=== PATIENT | female | born 1940 | race Asian ===

== ENCOUNTER 2021-12-16 03:48 | Inpatient (IN) | payer MEDICARE, OTHER ==
[~2021-12-16] VITALS: Ht 160 cm; Wt 63.6 kg
[2021-12-16] MEDS ORDERED: SODIUM CHLORIDE 0.9% 500 ML IV ONE (04:15)
[2021-12-16] MEDS ORDERED: ONDANSETRON HCL 4 MG/2 ML VIAL IVP ONE (04:15)
[2021-12-16 04:21] LABS: BASOPHILS % (AUTO) 0.2 % (0.0-2.0); EOSINOPHILS % (AUTO) 0.3 % (1.0-6.0); HEMATOCRIT 37.8 % (36-46); HEMOGLOBIN 12.9 g/dL (12.0-16.0); LYMPHOCYTES # (AUTO) 1.6 K/uL (1.0-4.8); LYMPHOCYTES % (AUTO) 25.4 % (22.0-44.0); MEAN CORPUSCULAR HEMOGLOBIN 30.9 pg (26.0-34.0); MEAN CORPUSCULAR VOLUME 91 fL (80-100); MONOCYTES # (AUTO) 0.4 K/uL (0.1-1.0); MONOCYTES % (AUTO) 5.7 % (2.0-9.0); NEUTROPHILS # (AUTO) 4.4 K/uL (1.8-7.7); NEUTROPHILS % (AUTO) 68.4 % (40.0-70.0); PLATELET COUNT (AUTO) 173 K/uL (150-450); RED BLOOD CELL COUNT(AUTO) 4.17 MIL/uL (4.00-5.20); RED CELL DISTRIBUTION WIDTH 13.2 % (11.5-14.5)
[2021-12-16] MEDS ORDERED: ISOS30TA92 PO (04:21)
[2021-12-16] MEDS ORDERED: AMLO5TAB66 PO (04:21)
[2021-12-16] MEDS ORDERED: CLOP75TA32 PO (04:21)
[2021-12-16] MEDS ORDERED: TELM40TA8 PO (04:21)
[2021-12-16] MEDS ORDERED: DONE-51 PO (04:21)
[2021-12-16] MEDS ORDERED: LINA1TAB9 PO (04:21)
[2021-12-16 04:40] LABS: ALANINE AMINOTRANSFERASE 33 U/L (12-78); ALBUMIN 3.9 g/dL (3.4-5.0); ALKALINE PHOSPHATASE 83 U/L (46-116); ANION GAP 14 mmol/L (8-16); ASPARTATE AMINOTRANSFERASE 24 U/L (15-37); BILIRUBIN,TOTAL 0.8 mg/dL (0.1-1.0); CALCIUM, TOTAL 9.2 mg/dL (8.8-10.5); CARBON DIOXIDE 24 mmol/L (22-29); CHLORIDE 100 mmol/L (98-107); CREATININE 0.82 mg/dL (0.60-1.30); LIPASE 127 U/L (73-393); SODIUM SERUM 138 mmol/L (136-145); TOTAL PROTEIN, SERUM 7.5 g/dL (6.4-8.2); UREA NITROGEN, BLOOD 15 mg/dL (7-18)
[2021-12-16 04:41] LABS: GLOMERULAR FILTR. RATE CALC > 60 mL/min (>60)
[2021-12-16 04:45] LABS: GLUCOSE,RANDOM 207 mg/dL (70-110)
[2021-12-16] MEDS ORDERED: FAMOTIDINE 10 MG/ML 2 ML VIAL IVP ONE (04:45)
[2021-12-16] MEDS ORDERED: SODIUM CHLORIDE 0.9% 100 ML ONE (05:10)
[2021-12-16] MEDS ORDERED: IOHEXOL 350 MG/ML 100 ML VIAL ONE (05:10)
[2021-12-16] MEDS ORDERED: METOCLOPRAMIDE HCL 5 MG/ML 2 ML VIAL IVP ONE (06:00)
[2021-12-16] MEDS ORDERED: ONDANSETRON HCL 4 MG/2 ML VIAL IVP PRN (10:15)
[2021-12-16] MEDS ORDERED: 0.9% SODIUM CHLORIDE 10 ML SYRINGE IVP PRN (10:15)
[2021-12-16 10:23] LABS: PROTHROMBIN TIME 10.7 SEC (9.4-11.6)
[2021-12-16 12:30] LABS: COVID AG,FIA SOURCE NASAL SWAB
[2021-12-16 12:47] LABS: APPEARANCE,URINE CLEAR (CLEAR); BILIRUBIN,URINE NEGATIVE (NEGATIVE); GLUCOSE, URINE (UA) NEGATIVE (NEGATIVE); KETONES,URINE NEGATIVE (NEGATIVE); LEUKOCYTE ESTERASE ,URINE NEGATIVE (NEGATIVE); NITRATE,URINE NEGATIVE (NEGATIVE); OCCULT BLOOD,URINE TRACE (NEGATIVE); PROTEIN,URINE 30-70 mg/dL (NEGATIVE); SPECIFIC GRAVITIY, URINE 1.046 (1.003-1.030); UROBILINOGEN,URINE <=1.0 mg/dL (<=1.0)
[2021-12-16 12:50] VITALS: BP 155/72
[2021-12-16 12:58] LABS: BACTERIA,URINE Many /HPF (None Seen); RBC,URINE 0-2 /HPF (0-2); WBC,URINE None Seen /HPF (0-5); YEAST,URINE None Seen /HPF (None Seen)
[2021-12-16] MEDS ORDERED: IPRATROPIUM BROMIDE 0.5 MG/2.5 ML NEB SOLUTION NEB PRN (13:45)
[2021-12-16] MEDS ORDERED: ACETAMINOPHEN 325 MG TABLET PO PRN (13:45)
[2021-12-16] MEDS ORDERED: DEXTROSE 50%-WATER 25 GM/50 ML SYRINGE IVP PRN (13:45)
[2021-12-16] MEDS ORDERED: MORPHINE SULFATE 2 MG/ML SYRINGE IVP PRN (13:45)
[2021-12-16] MEDS ORDERED: BISACODYL 10 MG RECTAL RECTAL SUPPOSITORY PR PRN (13:45)
[2021-12-16] MEDS ORDERED: DOCUSATE SODIUM 100 MG CAPSULE PO PRN (13:45)
[2021-12-16] MEDS ORDERED: ALBUTEROL SULFATE 2.5 MG/0.5 ML NEB SOLUTION NEB PRN (13:45)
[2021-12-16] MEDS: PANTOPRAZOLE SODIUM 40 MG DR TABLET PO SCH (13:51)
[2021-12-16] MEDS: HEPARIN SODIUM,PORCINE 5,000 UNITS/ML VIAL SQ SCH ×2 (15:58→23:16)
[2021-12-16 16:29] VITALS: BP 165/74
[2021-12-16] MEDS: INSULIN LISPRO 100 UNITS/ML SQ PRN ×2 (16:56→21:36)
[2021-12-16 17:07] LABS: GLUCOMETER DEV NAME(LOC) 6S.1B; GLUCOSE,POINT OF CARE 155 MG/DL (70-110)
[2021-12-16 19:23] VITALS: BP 122/53
[2021-12-16 22:51] LABS: GLUCOMETER DEV NAME(LOC) 6N.1; GLUCOSE,POINT OF CARE 212 MG/DL (70-110)
[2021-12-17] MEDS ORDERED: RINGERS SOLUTION,LACTATED 1,000 ML IV ONE ×2 (03:00→13:01)
[2021-12-17 04:05] VITALS: BP 135/60
[2021-12-17] MEDS ORDERED: SODIUM CHLORIDE 0.9% 500 ML IV ONE (05:43)
[2021-12-17] MEDS ORDERED: CefTRIAXone 1 GM/DEXTROSE 50 ML IV SCH (06:00)
[2021-12-17] MEDS: HEPARIN SODIUM,PORCINE 5,000 UNITS/ML VIAL SQ SCH ×3 (08:00→23:12)
[2021-12-17 08:17] VITALS: BP 129/59
[2021-12-17] MEDS: PANTOPRAZOLE SODIUM 40 MG DR TABLET PO SCH (09:00)
[2021-12-17 09:02] LABS: GLUCOMETER DEV NAME(LOC) 6N.1; GLUCOSE,POINT OF CARE 164 MG/DL (70-110)
[2021-12-17] MEDS ORDERED: IOTHALAMATE MEGLUMINE 600 MG/ML 50 ML VIAL IVP ONE (10:27)
[2021-12-17 11:55] LABS: BASOPHILS % (AUTO) 0.1 % (0.0-2.0); EOSINOPHILS % (AUTO) 0 % (1.0-6.0); HEMATOCRIT 36.5 % (36-46); HEMOGLOBIN 12.6 g/dL (12.0-16.0); LYMPHOCYTES # (AUTO) 0.6 K/uL (1.0-4.8); LYMPHOCYTES % (AUTO) 5.5 % (22.0-44.0); MEAN CORPUSCULAR HGB CONC 34.4 G/dL (31.0-37.0); MEAN CORPUSCULAR VOLUME 90 fL (80-100); MONOCYTES # (AUTO) 0.6 K/uL (0.1-1.0); MONOCYTES % (AUTO) 5.4 % (2.0-9.0); NEUTROPHILS # (AUTO) 9.5 K/uL (1.8-7.7); PLATELET COUNT (AUTO) 161 K/uL (150-450); RED BLOOD CELL COUNT(AUTO) 4.06 MIL/uL (4.00-5.20)
[2021-12-17] MEDS ORDERED: LIDOCAINE/PF 2% 5 ML VIAL IM ONE (12:00)
[2021-12-17] MEDS ORDERED: GLUCAGON,HUMAN RECOMBINANT 1 MG VIAL IVP ONE (12:00)
[2021-12-17] MEDS ORDERED: PIPERACILLIN/TAZO 3.375 GM/D5W 50 ML IV SCH (12:00)
[2021-12-17] MEDS ORDERED: DEXAMETHASONE SOD PHOS 4 MG/ML VIAL IVP ONE (12:00)
[2021-12-17] MEDS ORDERED: FentaNYL CITRATE PF 100 MCG/2 ML VIAL IVP ONE (12:00)
[2021-12-17] MEDS ORDERED: ONDANSETRON HCL 4 MG/2 ML VIAL IVP ONE (12:00)
[2021-12-17] MEDS ORDERED: PROPOFOL 1% 20 ML VIAL IVP ONE (12:00)
[2021-12-17] MEDS ORDERED: 0.9% SODIUM CHLORIDE 10 ML VIAL IVP ONE (12:00)
[2021-12-17] MEDS ORDERED: ROCURONIUM BROMIDE 10 MG/ML 5 ML VIAL IVP ONE (12:00)
[2021-12-17 12:09] LABS: ALBUMIN 3.6 g/dL (3.4-5.0); BILIRUBIN,TOTAL 0.8 mg/dL (0.1-1.0); CALCIUM, TOTAL 9.5 mg/dL (8.8-10.5); CREATININE 0.96 mg/dL (0.60-1.30); POTASSIUM 3.9 mmol/L (3.5-5.1); TOTAL PROTEIN, SERUM 7.6 g/dL (6.4-8.2)
[2021-12-17] MEDS ORDERED: SODIUM CHLORIDE 0.9% 0 ML ONE (13:00)
[2021-12-17] MEDS ORDERED: HYDROmorphone 2 MG/ML VIAL IVP PRN (13:15)
[2021-12-17] MEDS ORDERED: FentaNYL CITRATE PF 100 MCG/2 ML VIAL IVP PRN (13:15)
[2021-12-17] MEDS ORDERED: MEPERIDINE-PF 25 MG/ML VIAL IVP PRN (13:15)
[2021-12-17 13:51] LABS: GLUCOMETER DEV NAME(LOC) SDS.; GLUCOSE,POINT OF CARE 168 MG/DL (70-110)
[2021-12-17 16:24] VITALS: BP 177/77
[2021-12-17] MEDS: DONEPEZIL HCL 10 MG TABLET PO SCH (16:33)
[2021-12-17] MEDS: TELMISARTAN 40 MG TABLET PO SCH (16:33)
[2021-12-17] MEDS: ISOSORBIDE MONONITRATE 30 MG ER TABLET PO SCH (16:33)
[2021-12-17] MEDS: AmLODIPine BESYLATE 5 MG TABLET PO SCH (16:33)
[2021-12-17] MEDS: INSULIN LISPRO 100 UNITS/ML SQ PRN ×2 (16:42→21:06)
[2021-12-17 17:32] LABS: GLUCOMETER DEV NAME(LOC) 6S.1B; GLUCOSE,POINT OF CARE 163 MG/DL (70-110)
[2021-12-17 18:14] VITALS: BP 169/72
[2021-12-17 19:32] VITALS: BP 143/69
[2021-12-17] MEDS: OXYGEN THERAPY IH SCH (19:37)
[2021-12-17] MEDS: PIPERACILLIN/TAZO 3.375 GM/D5W 50 ML IV SCH (19:46)
[2021-12-17 20:01] LABS: GLUCOMETER DEV NAME(LOC) 6N.1; GLUCOSE,POINT OF CARE 247 MG/DL (70-110)
[2021-12-17] MEDS: ONDANSETRON HCL 4 MG/2 ML VIAL IVP PRN (20:13)
[2021-12-17 22:06] LABS: GLUCOMETER DEV NAME(LOC) 6N.2; GLUCOSE,POINT OF CARE 226 MG/DL (70-110)
[2021-12-18] MEDS: ONDANSETRON HCL 4 MG/2 ML VIAL IVP PRN ×2 (03:11→09:06)
[2021-12-18 04:12] VITALS: BP 144/76
[2021-12-18] MEDS: PIPERACILLIN/TAZO 3.375 GM/D5W 50 ML IV SCH ×2 (04:52→11:25)
[2021-12-18] MEDS ORDERED: METOCLOPRAMIDE HCL 5 MG/ML 2 ML VIAL IVP ONE ×2 (05:15→13:00)
[2021-12-18 05:36] LABS: GLUCOMETER DEV NAME(LOC) SDS.; GLUCOSE,POINT OF CARE 235 MG/DL (70-110)
[2021-12-18] MEDS: INSULIN LISPRO 100 UNITS/ML SQ PRN ×2 (05:53→11:28)
[2021-12-18 07:06] LABS: GLUCOMETER DEV NAME(LOC) 6S.1B; GLUCOSE,POINT OF CARE 198 MG/DL (70-110)
[2021-12-18] MEDS: OXYGEN THERAPY IH SCH (08:00)
[2021-12-18 08:07] VITALS: BP 127/61
[2021-12-18] MEDS: HEPARIN SODIUM,PORCINE 5,000 UNITS/ML VIAL SQ SCH (09:07)
[2021-12-18] MEDS: TELMISARTAN 40 MG TABLET PO SCH (09:07)
[2021-12-18] MEDS: AmLODIPine BESYLATE 5 MG TABLET PO SCH (09:07)
[2021-12-18] MEDS: PANTOPRAZOLE SODIUM 40 MG DR TABLET PO SCH (09:07)
[2021-12-18] MEDS: DONEPEZIL HCL 10 MG TABLET PO SCH (09:07)
[2021-12-18] MEDS: ISOSORBIDE MONONITRATE 30 MG ER TABLET PO SCH (09:07)
[2021-12-18] MEDS ORDERED: TRAM50TA4 PO (12:24)
[2021-12-18] MEDS ORDERED: CEPH-558 PO (12:24)
[2021-12-18] MEDS ORDERED: METO5TAB95 PO (12:24)
[2021-12-18] MEDS ORDERED: AMLO5TAB66 PO (12:24)
[2021-12-18 20:01] LABS: GLUCOMETER DEV NAME(LOC) 6N.2; GLUCOSE,POINT OF CARE 195 MG/DL (70-110)
== END 2021-12-18 15:00 | disposition home or self-care (01) | DRG 438 ==
LOC: EMS 03:53 → 6S 12:02
PROVIDERS: ADMIT Internal Medicine; ATTEND Internal Medicine
PROC: 0F798DZ Dilation of Common Bile Duct with Intraluminal Device, Via Natural or Artificial Opening Endoscopic (ICD-10-PCS; 2021-12-17)
PROC: BF101ZZ Fluoroscopy of Bile Ducts using Low Osmolar Contrast (ICD-10-PCS; 2021-12-17)
PROC: 0FD98ZX Extraction of Common Bile Duct, Via Natural or Artificial Opening Endoscopic, Diagnostic (ICD-10-PCS; principal; 2021-12-17 14:30)
DX: K86.89 Other specified diseases of pancreas (principal); K83.1 Obstruction of bile duct; N39.0 Urinary tract infection, site not specified; E11.9 Type 2 diabetes mellitus without complications; F03.90 Unspecified dementia, unspecified severity, without behavioral disturbance, psychotic disturbance, mood disturbance, and anxiety; I11.9 Hypertensive heart disease without heart failure; Z20.822 Contact with and (suspected) exposure to COVID-19; Z86.73 Personal history of transient ischemic attack (TIA), and cerebral infarction without residual deficits; Z90.49 Acquired absence of other specified parts of digestive tract; Z90.710 Acquired absence of both cervix and uterus; Z79.899 Other long term (current) drug therapy
CPT/HCPCS: 51701; 74177; 74183; 80053; 81001; 82105; 82378; 82962; 83690; 84145; 84484; 85025; 85610; 85730; 86301; 87040; 87081; 87086; 93005; 99285; J0690; J0696; J1100; J1610; J1644; J2270; J2405; J2543; J2704; J2765; J3010; J3490; J7030; J7040; J7050; J7120; Q9961; Q9967